=== PATIENT | female | born 1995 | race Caucasian/White ===

== ENCOUNTER 2019-03-05 08:10 | Day surgery (SDC) | payer MEDICAID ==
[2019-03-03 14:31] LABS: BASOPHILS 0.5 % (0-2); EOSINOPHILS 2.7 % (0-7); HEMATOCRIT 36.8 % (36.0-48.0); HEMOGLOBIN 12.7 g/dL (12-16); IMMATURE GRANULOCYTES 0.2 % (0-5); LYMPHOCYTES 33.3 % (15-50); MCH 29.1 pg (26.0-34.0); MCHC 34.5 g/dL (31.0-37.0); MCV 84.2 fL (80.0-100.0); MEAN PLATELET VOLUME 8.7 fL (7.4-10.4); MONOCYTES 10.1 % (2-11); NEUTROPHILS 53.2 % (40-80); RBC 4.37 10x6/uL (4.00-5.40); RDW 12.6 % (11.5-14.5); WBC 4.4 10x3/uL (4.8-10.8)
[2019-03-03 14:40] LABS: PLATELET COUNT 153 10x3/uL (130-400)
[~2019-03-05 08:10] MED LIST: ACETAMINOPHEN500 M1 PO; CLEOCIN HCL150 MG PO; LISINOPRIL10 MG PO; METHYLDOPA500 MG PO; PRENATAL COMPLE1 TAB PO; SYNTHROID100 MCG PO; ZIAC 10-6.25 MG1 TAB PO; ZOFRAN4 MG PO
[2019-03-05 08:40] LABS: HCG URINE NEGATIVE (NEGATIVE)
[2019-03-05] MEDS ORDERED: BREO ELLIPTA 11 EACH INH (08:42)
[2019-03-05] MEDS ORDERED: ELAVIL10 MG PO (08:43)
[2019-03-05 08:44] VITALS: BP 145/99; BMI 32.6
--- NOTE | 2019-03-05 11:55 | NUR ---
REC'D FROM RR. DROWSY. RESPONDS TO VERBAL STIMULI. [place] BROUGHT TO PATIENT.
--- NOTE | 2019-03-05 12:55 | NUR ---
AMBULATED TO BATHROOM AND VOIDED WITHOUT DIFFICULTY. SIGNIFICANT OTHER ASKING ABOUT SURGICAL PROCEDURE. EXPLAINED THAT DR HARGROVE CAME BY TO SPEAK WITH FAMILY AFTER SURGERY BUT NOBODY WAS IN THE ROOM. RELATED WOULD TRY AND REACH DR HARGROVE.
--- NOTE | 2019-03-05 13:20 | NUR ---
PAGED DR HARGROVE.
--- NOTE | 2019-03-05 13:23 | NUR ---
DR HARGROVE SPEAKING WITH PATIENT'S SIGNIFICANT OTHER VIA TELEPHONE.
--- NOTE | 2019-03-05 14:00 | NUR ---
IV DC'D WITH CATHETER INTACT. WRITTEN AND VERBAL DC INST. GIVEN TO PT ALONG WITH RX. VERBALIZED UNDERSTANDING,
--- NOTE | 2019-03-05 14:10 | NUR ---
DC'D HOME WITH FAMILY VIA PRIVATE VEHICLE. TAKEN TO VEHICLE VIA WC. STABLE AT TIME OF DC.
--- NOTE | 2019-03-23 13:55 | OP ---
PATIENT NAME: KAYLI LOZA MEDICAL RECORD: [id number] :93 LOCATION:D.OPS ADMISSION DATE: SURGEON: KATERIN CORRALES MD DATE OF OPERATION: 03/05/2019 PREOPERATIVE DIAGNOSES: 1. Menorrhagia. 2. Dysmenorrhea. POSTOPERATIVE DIAGNOSES: 1. Retroverted uterus. 2. Cavity too large to perform endometrial ablation. PROCEDURES: Hysteroscopy and D&C. SURGEON: Katerin Corrales ANESTHESIA: General by LMA. INTRAVENOUS FLUIDS: Per anesthesia record. HYSTEROSCOPIC FLUID LOSS: Approximately 50 cc. SPECIMENS: Endometrial curettings. FINDINGS: Retroverted uterus with sounding to approximately 11 cm when uterine cavity straightened. Grossly normal external genitalia and cervix. SPECIMENS: Included endometrial curettings. BLOOD LOSS: Minimal. PROCEDURE IN DETAIL: The patient was taken to the operating room, where general anesthesia was achieved without any difficulty. The patient was then prepped and draped in normal sterile fashion in the dorsal lithotomy position in the [facility]. Following prep and drape, the bladder was drained of approximately 100 cc of clear yellow urine. At this point, a Graves speculum was placed into the vagina and the cervix was grasped on its anterior lip with a single-tooth tenaculum. The cervix was dilated to approximately 8 mm, at which point a hysteroscope was placed into the cervix and the uterus was found to be retroverted. Gentle tension was placed on the cervix to straighten out the uterine cavity and the uterine cavity sounded to approximately 11 cm. It was felt this was too large to use the NovaSure endometrial ablation device. Curettage was performed, returning copious amounts of proliferative-appearing tissue. Minimal bleeding was noted from the cervical os at that time. The tenaculum was then removed. The patient tolerated the procedure well. She was transferred to postanesthesia recovery stable without incident. TRANSINT:[id number] Voice Confirmation ID: [id number] DOCUMENT ID: [id number] OPERATIVE REPORT [id number] KAYLI LOZA BEENA, KATERIN Olievr MD at 1355 CC: [id number] DICTATION DATE: 03/18/19 1124 [employer] MACHINE OPERATOR: 03/18/19 1203 [facility] 03/05/19 [facility] [address] [facility] [place] [address]
== END 2019-03-05 14:10 | disposition home or self-care (01) ==
LOC: D.OPS 08:10
PROVIDERS: ATTEND Obstetrics & Gynecology
DX: N94.6 Dysmenorrhea, unspecified (principal); E28.2 Polycystic ovarian syndrome

== ENCOUNTER 2019-04-12 10:27 | Inpatient (IN) | payer MEDICAID ==
[~2019-04-12 10:27] MED LIST changes: +BREO ELLIPTA 11 EACH INH; +ELAVIL10 MG PO
[2019-04-14] MEDS ORDERED: LEXAPRO5 MG PO (14:28)
[2019-04-14 14:57] LABS: BASOPHILS 0.3 % (0-2); HEMATOCRIT 37.7 % (36.0-48.0); HEMOGLOBIN 12.9 g/dL (12-16); IMMATURE GRANULOCYTES 0.3 % (0-5); LYMPHOCYTES 24.4 % (15-50); MCH 28.4 pg (26.0-34.0); MCHC 34.2 g/dL (31.0-37.0); MEAN PLATELET VOLUME 8.8 fL (7.4-10.4); MONOCYTES 6.6 % (2-11); NEUTROPHILS 65.4 % (40-80); PLATELET COUNT 156 10x3/uL (130-400); RBC 4.54 10x6/uL (4.00-5.40); RDW 12.5 % (11.5-14.5); WBC 7.5 10x3/uL (4.8-10.8)
[2019-04-14 15:11] LABS: CALC OSMOLALITY 279 mosm/kg (275-300); CARBON DIOXIDE 28.3 mmol/L (21.0-32.0); CHLORIDE - SERUM 104 mmol/L (98-107); CREATININE - SERUM 0.9 mg/dL (0.6-1.3); GLUCOSE 119 mg/dL (74-106); POTASSIUM - SERUM 3.6 mmol/L (3.5-5.1); SODIUM 140 mmol/L (136-145); UREA NITROGEN 12 mg/dL (7-18); eGFR NON AFRICAN AMERICAN 80 mL/min (90-120)
[2019-04-16] VITALS (14 sets, daily range): BP systolic 113–140; BP diastolic 60–87; BMI 34.3; BMI 33.7
[2019-04-16 07:08] LABS: HCG URINE NEGATIVE (NEGATIVE)
--- NOTE | 2019-04-16 10:50 | NUR ---
RECEIVED PT FROM VIA BED TO ROOM 1278. BED LOCKED AND PLACED IN LOW POSITION. VS NOTED. O2 INCREASED TO 2 LITERS PER N/C. HRRR WITHOUT AUDIBLE MURMUR. BBS CLEAR. BS ABSENT LOWER QUADS. ABDOMINAL INCISION WITH DERMABOND. NO REDNESS, SWELLING OR DRAINAGE NOTED. PERIPAD TO INCISION. ICE PACK TO INCISION FOR COMFORT. NO VAGINAL DISCHARGE NOTED. NEG HOMANS' SIGN. PPP. MILD NON-PITTING EDEMA NOTED TO BLE. SCDS ON BLE. PUMP ON. MCKEON TO GRAVITY DRAINING CLEAR, LIGHT GREEN URINE. PIV SITE CLEAR TO RIGHT HAND. LR INFUSING AT 125 ML/HR. DILAUDID UTILITY HAND STARTED ORDERED. PT INSTRUCTED ON UTILITY HAND BUTTON AND DILAUDID MEDICATION. WILL NEED REINFORCEMENT PT IS DROWSY AT THIS TIME. SR UP X 2. CALL LIGHT IN REACH.
--- NOTE | 2019-04-16 12:02 | NUR ---
PT LYING SUPINE IN BED. SEMI-DEL ROSARIO'S POSITION. EYES CLOSED. RESP NON-LABORED. PT NOT DISTURBED TO ALLOW FOR REST.
--- NOTE | 2019-04-16 13:00 | NUR ---
PT LYING IN SEMIFOWLER'S POSITION. PT MORE AWAKE. VSS. ABDOMINAL INCISION WITHOUT REDNESS, SWELLING OR DRAINAGE NOTED. PT REQUESTS AND RECEIVES POPSICLE. DENIES NAUSEA.
--- NOTE | 2019-04-16 14:10 | NUR ---
TORADOL 30 MG GIVEN SIVP OVER 2 MINUTES FOR C/O INCISIONAL BURNING OF "8" ON 0-10 PAIN SCALE. INSTRUCTED ON MED. VERBALIZES UNDERSTANDING.
[2019-04-16 14:59] LABS: BASOPHILS 0.1 % (0-2); EOSINOPHILS 0.1 % (0-7); HEMATOCRIT 38.2 % (36.0-48.0); HEMOGLOBIN 13.1 g/dL (12-16); IMMATURE GRANULOCYTES 0.4 % (0-5); LYMPHOCYTES 4.1 % (15-50); MCH 28.5 pg (26.0-34.0); MCHC 34.3 g/dL (31.0-37.0); MCV 83.2 fL (80.0-100.0); MONOCYTES 1.8 % (2-11); NEUTROPHILS 93.5 % (40-80); PLATELET COUNT 140 10x3/uL (130-400); RBC 4.59 10x6/uL (4.00-5.40); RDW 12.4 % (11.5-14.5)
[2019-04-16 15:30] LABS: CALC OSMOLALITY 273 mosm/kg (275-300); CALCIUM 8.7 mg/dL (8.5-10.1); CARBON DIOXIDE 25.5 mmol/L (21.0-32.0); CHLORIDE - SERUM 103 mmol/L (98-107); CREATININE - SERUM 0.6 mg/dL (0.6-1.3); GLUCOSE 128 mg/dL (74-106); POTASSIUM - SERUM 4.3 mmol/L (3.5-5.1); SODIUM 137 mmol/L (136-145); UREA NITROGEN 7 mg/dL (7-18); eGFR NON AFRICAN AMERICAN > 90 mL/min (90-120)
--- NOTE | 2019-04-16 15:32 | NUR ---
I/O COMPLETED. PT DENIES NEEDS OR C/O.
--- NOTE | 2019-04-16 15:54 | NUR ---
TALKING ON TELEPHONE- DENIES NEEDS.
--- NOTE | 2019-04-16 17:24 | NUR ---
PT LYING SUPINE IN BED. WAKES UPON ENTERING ROOM. DENIES C/O OR NEEDS. TOLERATING CLEAR LIQUIDS.
--- NOTE | 2019-04-16 17:55 | NUR ---
PT INSTRUCTED ON USE OF INCENTIVE SPIROMETER. DEMONSTRATES UNDERSTANDING. PULLS 1800.
--- NOTE | 2019-04-16 18:44 | NUR ---
PT LYING IN SEMI-DEL ROSARIO'S POSITION. EYES CLOSED. RESP NON-LABORED. PT NOT DISTURBED TO ALLOW FOR REST.
--- NOTE | 2019-04-16 19:35 | NUR ---
DR PARR NOTIFIED OF PT C/O THROAT PAIN. ORDER RECEIVED.
--- NOTE | 2019-04-16 20:01 | NUR ---
SHIFT ASSESSMENT COMPLETED PER FLOWSHEET. VSS. O2 DECREASED FROM 2L/MIN TO 1.5L/MIN. C/O PAIN 6/10, INTERMITTENT ABD PAIN, DULL AND SHARP. TORADOL GIVEN PER ORDER AND PT REQUEST. 700 MLS LIGHT BLUE/GREEN URINE EMPTIED FROM MCKEON, MCKEON DRAINING TO BEDSIDE DRAINAGE. REPORTS THAT SHE IS PASSING FLATUS. BOWEL SOUNDS ACTIVE X4 QUADRANTS. LOWER TRANSVERSE ABD INCISION, WELL APPROXIMATED WITH GLUE INTACT, NO DRAINAGE NOTED. PERIPAD PLACE OVER INCISION BETWEEN ABD FOLD. INSTRUCTED ON S/S OF INFECTION AND INCISIONAL CARE, VERBALIZED UNDERSTANDING. SCD'S ON BLE. JELLO, SPRITE, AND ICE PACK PROVIDED PER PT REQUEST. PLAN OF CARE DISCUSSED WITH PT, VERBALIZES UNDERSTANDING AND DENIES QUESTIONS. BED IN LOW POSITION WITH UPPER SIDE RAILS RAISED X2. CALL LIGHT AND PHONE WITHIN REACH.
--- NOTE | 2019-04-16 20:30 | NUR ---
PAIN REASSESSMENT COMPLETED, -02/17, STATES THAT TORADOL "HELPED A WHOLE LOT." BLANKET PROVIDED PER REQUEST. DENIES ADDITIONAL NEEDS. BED IN LOW POSITION WITH UPPER SIDE RAILS RAISED X2. CALL LIGHT AND PHONE WITHIN REACH. SCD'S ON BLE. WILL CONTINUE TO MONITOR AND ASSIST PRN.
--- NOTE | 2019-04-16 20:46 | NUR ---
C/O ITCHING ALL OVER. DR. PARR NOTIFIED. ORDERS REC'D.
--- NOTE | 2019-04-16 21:28 | NUR ---
UPDATED ON PLAN OF CARE AND NEW ORDERS FOR BENADRYL. 25 MG IVP BENADRYL GIVEN PER ORDER. PT EDUCATED ON BENADRYL, VERBALIZES UNDERSTANDING. PULMONOLOGY TECHNICIAN VIAL NEAR END AND CHANGED, VERIFIED WITH Efren SHULTZ RN. REPOSITIONED TO LEFT SIDE WITH MINIMAL ASSIST. COUGH, DEEP BREATHING, AND INCENTIVE SPIROMETER DONE WITH GOOD EFFORT. JELLO AND EXTRA PILLOW PROVIDED PER PT REQUEST. DENIES ADDITIONAL NEEDS. BED IN LOW POSIITION WITH UPPER SIDE RAILS RAISED X2. CALL LIGHT AND PHONE WITHIN REACH. WILL CONTINUE TO MONITOR AND ASSIST PRN.
--- NOTE | 2019-04-16 22:18 | NUR ---
RESTING QUIETLY WITH EYES CLOSED, RESPIRATIONS REGULAR AND UNLABORED, NO S/S OF DISTRESS NOTED. PT DOES NOT OPEN EYES TO DOOR OPENING AND RN BEING AT BEDSIDE, PHONE OFF HOOK AND REPLACED. SCD'S REMAIN ON BLE. WILL CONTINUE TO MONITOR AND ASSIST PRN. MCKEON CONTINUES TO DRAIN TO BEDSIDE DRAINAGE.
[2019-04-17] VITALS (7 sets, daily range): BP systolic 104–152; BP diastolic 55–78
--- NOTE | 2019-04-17 00:08 | NUR ---
VSS. PAIN 2-3, STATES THAT WINDOW DRESSER IS CONTROLLING PAIN WELL "AND THE TORADOL REALLY WORKS WELL." 600 MLS LIGHT BLUE/GREEN COLORED URINE EMPTIED FROM MCKEON. GOWN AND CHUX CHANGED. INCISION REMAINS WELL APPROXIMATED WITH GLUE INTACT, NO DRAINAGE NOTED. CLEAN PERIPAD PLACED ON INCISION BETWEEN ABD FOLD. PIV DRSG CHANGED. REPOSITIONED TO RIGHT SIDE WITH PILLOW PLACED BEHIND BACK FOR COMFORT AND SUPPORT, MINIMAL ASSIST NEEDED WITH REPOSITIONING. COUGHING, DEEP BREATHING, AND INCENTIVE SPIROMETER DONE WITH GOOD EFFORT. SCD'S REMAIN ON BLE. CHICKEN BROTH, JELLO, AND WATER PROVIDED PER PT REQUEST. DENIES ADDITIONAL NEEDS. BED IN LOW POSITION WITH UPPER SIDE RIALS RAISED X2. CALL LIGHT AND PHONE WITHIN REACH. WILL CONT TO MONITOR AND ASSIST PRN.
--- NOTE | 2019-04-17 02:26 | NUR ---
NEW BAG LR HUNG TO CONTINUE TO INFUSE AT 125 MLS/HR VIA PUMP PER ORDER. REPOSITIONED FROM RT SIDE TO BACK WITH MINIMAL ASSIST. COUGH, DEEP BREATHING, AND INCENTIVE SPIROMETER USED WITH GOOD EFFORT. C/O PAIN 05/19 FOLLOWING ACTIVITY, REQUESTS TORADOL, GIVEN PER REQUEST AND ORDER. LAY UP OPERATOR BUTTON ALSO USE AT THIS TIME. SCD'S REMAIN ON BLE. BED IN LOW POSITION WITH UPPER SIDE RIALS RAISED X2. CALL LIGHT AND PHONE WITHIN REACH. WILL CONTINUE TO MONITOR AND ASSIST PRN.
--- NOTE | 2019-04-17 03:04 | NUR ---
RESTING QUIETLY WITH EYES CLOSED, RESPIRATIONS REGULAR AND UNLABORED, NO S/S OF DISTRESS NOTED. WILL CONTINUE TO MONITOR AND ASSIST PRN.
--- NOTE | 2019-04-17 04:44 | NUR ---
VSS. 450 MLS BLUE/GREEN URINE EMPTIED FROM MCKEON. INCISION REMAINS WELL APPROXIMATED WITH GLUE INTACT, NO DRAINAGE NOTED. NEW PERIPAD PLACED OVER INCISION BETWEEN ABD FOLD. COUGH, DEEP BREATHING, AND INCENTIVE SPIROMETER DONE WITH GOOD EFFORT. REPOSITIONED WITH MINIMAL ASSIST TO LEFT SIDE. NEW ICE PACK PROVIDED. SCD'S REMAIN ON BLE. JELLO, ICE WATER, AND CHICKEN BROTH PROVIDED PER PT REQUEST. C/O OF ITCHING, 25 MG IVP BENADRYL GIVEN PER REQUEST AND ORDER. SOCKS AND WARM BLANKET ALSO PROVIDED PER REQUEST. DENIES ADDITIONAL NEEDS. BED IN LOW POSITION WITH UPPER SIDE RAILS RAISED X2. CALL LIGHT AND PHONE WITHIN REACH. WILL CONTINUE TO MONITOR AND ASSIST PRN.
[2019-04-17 06:14] LABS: BASOPHILS 0.1 % (0-2); EOSINOPHILS 0.3 % (0-7); HEMOGLOBIN 11.3 g/dL (12-16); IMMATURE GRANULOCYTES 0.2 % (0-5); LYMPHOCYTES 15.5 % (15-50); MCHC 33.2 g/dL (31.0-37.0); MCV 84.2 fL (80.0-100.0); MEAN PLATELET VOLUME 9.8 fL (7.4-10.4); MONOCYTES 10.9 % (2-11); PLATELET COUNT 131 10x3/uL (130-400); RBC 4.04 10x6/uL (4.00-5.40); RDW 12.5 % (11.5-14.5); WBC 10.3 10x3/uL (4.8-10.8)
[2019-04-17 06:25] LABS: CALC OSMOLALITY 279 mosm/kg (275-300); CALCIUM 8.3 mg/dL (8.5-10.1); CARBON DIOXIDE 27.3 mmol/L (21.0-32.0); CHLORIDE - SERUM 107 mmol/L (98-107); CREATININE - SERUM 0.7 mg/dL (0.6-1.3); GLUCOSE 101 mg/dL (74-106); POTASSIUM - SERUM 4.1 mmol/L (3.5-5.1); SODIUM 141 mmol/L (136-145); eGFR NON AFRICAN AMERICAN > 90 mL/min (90-120)
[2019-04-17 06:26] LABS: UREA NITROGEN 9 mg/dL (7-18)
--- NOTE | 2019-04-17 06:41 | NUR ---
REPOSITIONED TO BACK FROM LEFT SIDE. COUGH, DEEP BREATHING AND INCENTIVE SPIROMETER DONE WITH GOOD EFFORT. SCD'S ON BLE. PAIN 2-3/10 AT REST AND INCREASED TO 6-7/10 WITH ACTIVITY. WET END SUPERVISOR BUTTON USED. JELLO PROVIDED PER PT REQUEST. DENIES ADDITIONAL NEEDS. REPORTS RELIEF IN PAIN WITH WET END SUPERVISOR BUTTON USE. SCD'S REMAIN ON BLE. BED IN LOW POSITION WITH UPPER SIDE RAILS RAISED X2. CALL LIGHT AND PHONE WITHIN REACH. WILL CONTINUE TO MONITOR AND ASSIST PRN.
--- NOTE | 2019-04-17 07:32 | NUR ---
ASSUME CARE OF THIS PATIENT. CURRENTL SLEEPING TILTED TO RIGHT SIDE. RESPIRATIONS EVEN. SIDE RAILS UP X 2, CALL LIGHT IN REACH. WILL COMPLETE SHIFT ASSESSMENT WHEN AWAKE. ANTICIPATE NORMALIZATION THIS AM. 1 DAY S/P DARRIUS BSO. PATRICK MCKEON DATA SECURITY COORDINATOR, LR 125 ML/HR RIGHT HAND, SCD'S BILATERALLY. SMOKER.
--- NOTE | 2019-04-17 07:43 | NUR ---
CONCUR WITH CURRENT CARE PLAN ORDER.
--- NOTE | 2019-04-17 07:54 | NUR ---
CONTINUES SLEEPING, RESPIRATIONS EVEN.
--- NOTE | 2019-04-17 08:06 | NUR ---
TO ROOM FOR ASSESSMENT. AWAKE TALKING ON PHONE. SHIFT ASSESSMENT COMPLETED. DEEP BREATHING AND COUGHING COMPLETED. POSITIONED TO SEMI-FOWLERS POSITION PER SELF FOR BREAKFAST. DISCUSSED PROBABLE POC AFTER MD MAKES ROUNDS TO INCLUDE DC MCKEON, IV FLUIDS, AMBULATION, SHOWER AND PAIN MANAGEMENT. ICE PACK PRESENT OVER INCISION. SAYS HER PAIN IS 6/10, ENCOURAGED CONTINUED USE OF CADDY PACKER. HER PAIN GOAL IS 4/10. C/O GENERAL SKIN ITCHING, REQUESTED LOTION. NOTICE MAULIK SKIN UPPER SHOULDERS WITH PEELING SKIN- HAS BEEN IN SUN. LOTION AND WATER GIVEN. DISCUSSED NICODERM PATCH. DESIRES TO TRY. NO VAGINAL BLEEDING NOTED. DAY-PAD OVER INCISION NOTED. SIDERAILS UP X 2. CALL LIGHT IN REACH. CADDY PACKER CONTROLLER IN REACH.
--- NOTE | 2019-04-17 09:03 | NUR ---
SITTING UP IN BED TALKING ON PHONE. 5/10 ON PAIN SCALE, SAYS SHE JUST PUSHED HER WHEAT GROWER CONTROLLER. SAYS HER PAIN WILL SOMETIMES GO DOWN TO A 4/10 AFTER PUSHING AND "SOMETIMES NOT". NO ORDERS FOR NICODERM PATCH, WILL ASK MD WHEN HE COMES IN. HAS LOTION BUT HAS NOT USED. NOT TIME FOR BENADRYL. WILL GIVE TORADOL TO SUPPLEMENT DILAUDID.
--- NOTE | 2019-04-17 09:12 | NUR ---
TORADOL 30 MG GIVEN IVP FOR RELIEF OF 6/10 INCISIONAL DULL ACHING PAIN, WORSE WITH MOVEMENT. DR PARR VISITED. PLANS DC MCKEON, IV FLUIDS, HIDE TANNER, START REGULAR DIET, AMBULATE, SHOWER TODAY. SIDERAILS UP X 2, CALL LIGHT IN REACH. TO CALL IF ANY REQUESTS.
--- NOTE | 2019-04-17 09:41 | NUR ---
DR PARR VISITED PATIENT. NEW ORDERS RECEIVED.
--- NOTE | 2019-04-17 10:15 | NUR ---
MCKEON DC'D, IV FLUIDS DC'D AND SALINE LOCK FLUSHED WITH 10 ML NS. INCENTIVE SPIROMETER USED. NORCO 10 MG GIVEN PO FOR RELIEF OF 5/10 INCISIONAL DULL ACHING. DISCUSSED PLANS TO VOID WITHIN NEXT 4-6 HOURS. WILL GET OOB WHEN PT READY. PLAN REGULAR DIET FOR LUNCH. SIDE RAILS UP X 2, CALL LIGHT IN REACH.
--- NOTE | 2019-04-17 10:20 | NUR ---
DESIRES TO TRY TO VOID. SAT UP ON BEDSIDE WITHOUT DIFF, C/O SLIGHT DIZZINESS. DISCUSSED IMPORTANCE OF LETTING BP STABLIZE WHEN MOVING. STOOD UP WITHOUT DIFF. AMBULATED TO BR, UNABLE TO VOID, EXPLAINED TO PT THE FEELING MIGHT BE RELATED TO CATH JUST BEING DC'D. RETURNED TO BED. DESIRES TO SIT ON BEDSIDE. CALL LIGHT IN REACH.
--- NOTE | 2019-04-17 11:08 | NUR ---
TALKING ON PHONE. DENIES PAIN AT THIS TIME. NO REQUESTS. SIDERAILS UP X 2, CALL LIGHT IN REACH.
--- NOTE | 2019-04-17 12:08 | NUR ---
UP TO BATHROOM WITH ASSISTANCE FROM RN STUDENTS. PT AGREED EARLIER TO ALLOW FIREMAN HELPER TO WORK WITH THIS RN. VOIDED 200 ML LIGHT GREEN URINE. ATE SANDWICH TRAY EARLIER WITHOUT DIFFICULTY. RETURNED TO BED. ASKED FOR JELLO WHICH WAS GIVEN. SIDERAILS UP X 2, CALL LIGHT IN REACH. PULSE OX F/U 97% AFTER USING INCENTIVE SPIROMETER AND INSTRUCTING FIREMAN HELPER ON PROPER APPLICATION OF PULSE OX.
--- NOTE | 2019-04-17 12:36 | NUR ---
SITTING UP ON EDGE OF BED EATING LUNCH. C/O 6/10 SHARP LEFT SIDE INCISION PAIN. NOT TIME FOR PAIN MEDICATION. SMALL ICE PACK GIVEN TO PLACE ON LEFT SIDE OF INCISION AND ENSURED DAY-PAD OVER INCISION IN PLACE. STATES "I'M GOING TO FINISH EATING THEN LAY DAY AND SEE IF IT HELPS". WILL CONTINUE TO MONITOR INTERVENTIONS FOR IMPROVEMENT OF PAIN.
--- NOTE | 2019-04-17 13:20 | NUR ---
LAYING DOWN IN BED, SAYS HER PAIN IS BETTER NOW 02/17. FRESH WATER GIVEN, LIGHTS TURNED ON LOW, SIDERAILS UP X 2, CALL LIGHT IN REACH.
--- NOTE | 2019-04-17 13:52 | NUR ---
UP TO BATHROOM TO VOID. VOIDED 500 ML LIGHT GREEN URINE. BRUSHED TEETH WHILE UP. FAMILY ARRIVED TO VISIT. RETURNED TO BED WITHOUT DIFFICULTY. PLAN SHOWER LATER THIS AFTERNOON. TO CALL IF ANYTHING IS NEEDED.
--- NOTE | 2019-04-17 14:19 | NUR ---
NORCO 10 MG GIVEN PO FOR RELIEF OF 6/10 LEFT SIDE INCISIONAL BURNING. SITTING UP IN BED EATING ICE CREAM TALKING TO VISITORS. NO ADDITIONAL REQUEST. CALL LIGHT IN REACH.
--- NOTE | 2019-04-17 15:58 | NUR ---
COMPLETED SHOWER, AMBULATED IN [place] THREE TIMES AROUND L&D. TOLERATED WELL. SAYS SHE DOESN'T FEEL ANY PAIN NOW. "I'M SURPRISED HOW GOOD I FEEL BEING OUT OF THE BED". RETURNED TO ROOM. NO REQUESTS. COMPLETE LINEN CHANGE WAS DONE AND ROOM STRAIGHTENED. SIDERAILS UP X 2, CALL LIGHT IN REACH. NOTICED PRODUCTIVE COUGH OF THICK ZELAYA COLORED SPUTUM. ENCOURAGED CONTINUED USE OF INCENTIVE SPIROMETER, DEEP BREATHING AND COUGHING. DISCUSSED CHANGED THAT OCCUR AFTER NOT SMOKING A COUPLE OF DAYS AND ENCOURAGED TO CONSIDER QUITING SMOKING.
--- NOTE | 2019-04-17 16:37 | NUR ---
SITTING UP IN BED GETTING READY TO EAT. DESIRES SOMETHING DIFFERENT FOR DINNER, EXT GIVEN FOR PT TO CALL TO ORDER WHAT SHE WOULD LIKE. NO ADDITIONAL REQUESTS. INCISION DRY AND INTACT, NO ERRYTHEMA OR DRAINAGE, CLEAN DAY-PAD PLACED OVER SITE.
--- NOTE | 2019-04-17 17:08 | NUR ---
SITTING UP IN BED TALKING ON PHONE. WAITING ON ALTERNATE DINNER ORDER. 02/17 INCISIONAL BURNING, NO REQUESTS. FRESH WATER GIVEN. CALL LIGHT IN REACH. UP AD SITA TO BATHROOM.
--- NOTE | 2019-04-17 18:15 | NUR ---
SITTING UP IN BED. RECIEVED FOOD FROM DIETARY AND CURRENTLY EATING. NO REQUESTS. SIDERAILS UP X 2, CALL LIGHT IN REACH. 02/17 INCISIONAL BURNING.
--- NOTE | 2019-04-17 19:27 | NUR ---
PT C/O PAIN TO INCISION, PRN HYDROCODONE ADMINISTERED WITH SIPS WATER. NAD NOTED. WILL MONITOR.
--- NOTE | 2019-04-17 19:45 | NUR ---
SHIFT ASSESSMENT COMPLETED, COLOR PINK, SKIN WARM AND DRY, RESP EVEN AND UNLABORED, LUNGS CTAB, HEART RRR, ABD SOFT NO ABD DISTENSION NOTED, INCISION CDI WITH DERMABOND, NO REDNESS, EDEMA, OR DRAINAGE NOTED AT SITE, PERIPAD IN PLACE OVER INCISION TO PREVENT IRRITATION, REPORTS SOME FLATUS, NO BM YET, NO BLEEDING, VOIDS WITHOUT DIFFICULTY, CALDERÓN FREELY IN BED, NEGATIVE LENKA'S SIGN B LE, PEDAL PULSES STRONG/=/+2 B. CAP REFILL LESS THAN 2 SECS TO ALL EXTREMITIES, CALL LIGHT IN EASY REACH, DISCUSSED PLAN OF CARE STATES UNDERSTANDING, TCDB, TO AMBULATE IN HALLS THIS PM. WILL MONITOR.
--- NOTE | 2019-04-17 20:35 | NUR ---
RECHECK OF BP NOW 134/63. PT LYING SUPINE WITH HOB ELEVATED 30 DEGREES, DENIES OTHER NEEDS AT THIS TIME. WILL MONITOR.
--- NOTE | 2019-04-17 21:20 | NUR ---
PHONED DR PARR FOR PT CONTINUED C/O PAIN RATED 9/10 ON NUMERIC PAIN SCALE-INCISIONAL AND BURNING, SHARP PAIN. NEW ORDERS RECEIVED AND RELAYED TO PT. PT STATES UNDERSTANDING. WILL ADMINISTER UPON AVAILABILITY OF RN TO OVERRIDE PYXIS.
--- NOTE | 2019-04-17 21:24 | NUR ---
ADMINISTERED TORADOL PER PT REQUEST FOR C/O PAIN 07/20. WILL MONITOR.
--- NOTE | 2019-04-17 21:30 | NUR ---
PT AMBULATORY IN HALLS WITH SIGNIFICANT OTHER AT SIDE FOR SUPPORT. NAD NOTED. CONTINUE TO MONITOR.
--- NOTE | 2019-04-17 21:40 | NUR ---
ADMINISTERED PRN PERCOCET FOR CONTINUED C/O PAIN 9/10 ON NUMERIC PAIN SCALE. PT SIGNIFICANT OTHER AT BS WITH PT, CUP OF WATER PROVIDED PER REQUEST. SITTING UP IN BED, WATCHING TV. CALL LIGHT IN EASY REACH OF PT.
--- NOTE | 2019-04-17 22:29 | NUR ---
HS SNACK TRAY PROVIDED UPON REQUEST. NO OTHER NEEDS VOICED AT THIS TIME, CONTINUE TO MONITOR.
--- NOTE | 2019-04-17 22:44 | NUR ---
ADDITIONAL LINENS PROVIDED FOR SIGNIFICANT OTHER IN ROOM PER REQUEST. NO OTHER NEEDS VOICED AT THIS TIME. CALL LIGHT IN EASY REACH OF PT, CONTINUE TO MONITOR.
--- NOTE | 2019-04-17 23:36 | NUR ---
PT OOB TO NURSES' DESK TO TALK, AMBULATORY IN HALLS ALSO, DENIES NEEDS/CONCERNS, NAD NOTED. CONTINUE TO MONITOR.
--- NOTE | 2019-04-18 01:17 | NUR ---
ROUNDS COMPLETED, LYING IN BED SUPINE HOB ELEVATED 30 DEGREES, SIDE RAILS UP X2, BED IN LOW POSITION, RESP EVEN AND UNLABORED, CALL LIGHT IN EASY REACH, NAD NOTED. CONTINUE TO MONITOR.
--- NOTE | 2019-04-18 03:21 | NUR ---
ROUNDS COMPLETED, VSS, AFEBRILE, RESTING IN RIGHT LATERAL POSITION, HOB ELEVATED 20 DEGREES, PRN MED GIVEN WITH SIPS WATER PER REQUEST FOR C/O PAIN RATED 6/10, SIDE RAILS UP X2, BED IN LOW POSITION, BED BRAKES LOCKED.
[2019-04-18 03:25] VITALS: BP 114/76
--- NOTE | 2019-04-18 04:05 | NUR ---
PAIN REASSESSMENT. PT RESTING WITH EYES CLOSED, NO PHYSICAL S/SX PAIN OBSERVED USING FACIAL SCALE, SIDE RAILS UP X2, BED IN LOW POSITION. CONTINUE TO MONITOR.
--- NOTE | 2019-04-18 05:15 | NUR ---
ROUNDS COMPLETED. NAD NOTED, PT LYING IN RIGHT LYING POSITION, RESP EVEN AND UNLABORED, CONTINUE TO MONITOR.
--- NOTE | 2019-04-18 07:03 | NUR ---
REPORT GIVEN TO ONCOMING SHIFT.
--- NOTE | 2019-04-18 07:04 | NUR ---
ASSUME CARE OF THIS PATIENT. CURRENTLY SLEEPING ON RIGHT SIDE, RESPIRATIONS EVEN. VISITOR ALSO SLEEPING IN BED WITH PT. SIDE RAILS UP X 2, CALL LIGHT IN REACH. ANTICIPATE DC HOME TODAY.
--- NOTE | 2019-04-18 08:34 | NUR ---
JUST WOKE UP AND TO BATHROOM TO VOID. REQUEST PAIN MEDICATION FOR 9/10 LEFT INCISIONAL BURNING. PERCOCET 10 MG GIVEN PO. NO ACUTE DISTRESS NOTED, SMILING, TALKATIVE, VISITOR IN ROOM, BREAKFAST TRAY AT BEDSIDE. NO ADDITIONAL REQUESTS. WILL COMPLETE SHIFT ASSESSMENT AFTER BREAKFAST.
[2019-04-18 09:10] VITALS: BP 131/85
--- NOTE | 2019-04-18 09:10 | NUR ---
AWAKE SITTING UP IN BED. FINISHED BREAKFAST. VOIDING WITHOUT DIFF. HAS NOT HAD BM BUT SAYS SHE DOES PASS SOME GAS. NO ACUTE DISTRESS NOTED, SMILING, TALKING. VS OBTAINED. DESIRES NICODERM PATCHED PRESCRIPTION, DECLINES SMOKING CESSATION REFERRAL PROGRAM, WILL GIVE WRITTEN DC INSTRUCTIONS TO SUPPORT SMOKING CESSATION. ENCOURAGED TO REST NOW AFTER RECEIVING PAIN MEDICIATION AND SCHEDULED TORADOL. PLANS SHOWER IN APPROX ONE HOUR. SIDERAILS UP X 2, CALL LIGHT IN REACH.
--- NOTE | 2019-04-18 10:04 | NUR ---
SITTING UP IN BED. VISITOR JUST LEFT. PAIN IN INCISION IMPROVED, NOW 3-4/10 BURNING. ITEMS PLACED IN ROOM FOR SHOWER WHEN PT READY. NO ADDITIONAL REQUESTS. TO CALL IF ANYTHING IS NEEDED.
--- NOTE | 2019-04-18 10:41 | NUR ---
DR PARR VISITED PATIENT. REQUESTED ICE WATER AND ICE CREAM. NO OTHER REQUESTS. TOOK SHOWER AND LINENS WERE CHANGED BY RN STUDENT. TO CALL IF ANYTHING ELSE IS NEEDED.
--- NOTE | 2019-04-18 11:17 | NUR ---
LAYING ON LEFT SIDE. DENIES NEEDING ANYTHING 5/10 INCISIONAL BURNING. LIGHTS TURNED OFF PER PT REQUEST. WAITING ON DR HARGROVE VISIT. STATES "I'M IN NO HURRY". SIDERAILS UP X 2, CALL LIGHT IN REACH.
--- NOTE | 2019-04-18 12:29 | NUR ---
SLEEPING ON SIDE. RESPIRATIONS EVEN.
--- NOTE | 2019-04-18 13:04 | NUR ---
DR PARR CALLED AND SAID DR HARGROVE WILL NOT BE IN. ORDERS RECEIVED TO IA HOME. PER RECORDS PT HAS F/U APPOINTMENT SCHEDULED 04/29/19 AT 1015.
--- NOTE | 2019-04-18 13:13 | NUR ---
AWAKE. ATE 90% OF LUNCH. ASKED IF IT WAS TIME FOR PAIN MEDICATION. C/O CONTINUED LEFT INCISIONAL BURNING 06/19. PERCOCET 10 MG GIVEN PO FOR RELIEF. DISCUSSED USE OF LIGHT SUPPORT UNDERWEAR AT HOME TO SUPPORT LOWER ABDOMEN. DISCUSSED PAIN MEDICATION AND ADMINISTRATION FOR DC MEDS. INFORMED THAT DR HARGROVE WILL NOT BE IN BUT THAT DR PARR CALLED AND GAVE DC ORDER. VERBALIZED UNDERSTANDING.
[2019-04-18] MEDS ORDERED: IBUPROFEN800 MG PO (13:44)
[2019-04-18] MEDS ORDERED: PERCOCET 5-3251 TAB PO (13:45)
--- NOTE | 2019-04-18 13:56 | NUR ---
PAIN HAS IMPROVED PER PT NOW 3-4/10 INCISION BURNING. STUDENT RN COMPLETED PE NO CHANGES FROM EARLIER STATUS IDENTIFIED. VS OBTAINED. REQUESTED JELLO. NO ADDITIONAL REQUESTS. WILL DC HOME AFTER PROVIDING VERBAL AND WRITTEN DC INSTRUCTIONS.
[2019-04-18 14:00] VITALS: BP 129/77
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
--- NOTE | 2019-04-18 15:29 | NUR ---
AMBULATED TO NURSING DESK AND SAYS SHE IS READY TO GO HOME. SAYS HER PAIN IS GETTING BETTER AND THINKS IT WAS PROBABLY GAS. NO 03/19. DISCUSSED RELIEF MEASURES FOR GAS. VERBALIZED UNDERSTANDING. DC'D VIA WHEELCHAIR TO CAR. PT FATHER IS DRIVING. ALL BELONGINGS REMOVED FROM ROOM. HAS DC INSTRUCTIONS AND PRESCRIPTIONS. AWARE OF F/U APPOINTMENT AND WHO TO CALL IF ANY PROBLEMS.
--- NOTE | 2019-04-29 19:34 | OP ---
PATIENT NAME: KAYLI LOZA MEDICAL RECORD: [id number] :89 LOCATION:[facility]78 ADMISSION DATE:04/16/19 SURGEON: HA CORRALES MD DATE OF OPERATION: 04/16/2019 PREOPERATIVE DIAGNOSES: 1. Pelvic pain. 2. Extensive adhesive disease. POSTOPERATIVE DIAGNOSES: 1. Pelvic pain. 2. Extensive adhesive disease. 3. Uterus fused to rectus fascia and bladder adhesions. PROCEDURES: Supracervical hysterectomy and lysis of adhesions. SURGEON: Ha Corrales ANESTHESIA: General endotracheal. INTRAVENOUS FLUIDS: Per anesthesia record. SPECIMENS: Uterus with partial cervix. ESTIMATED BLOOD LOSS: 200 cc. COMPLICATIONS: None apparent. FINDINGS: 1. Uterus densely adherent to the anterior abdominal wall. 2. Dense adhesive disease involving the bladder and the cervix. PROCEDURE IN DETAIL: The patient was taken to the operating room, where general anesthesia was achieved without difficulty. The patient was then prepped and draped in normal sterile fashion in the dorsal supine position. SCDs were on and functioning normally. A Jasmine catheter had been placed following vaginal prep and was draining freely. Following prep and drape, a repeat Pfannenstiel skin incision was made and extended downward to the underlying fat to level of the fascia. The fascia was then excised in the midline and the fascial incision was extended bilaterally using the Yost scissors. The superior and inferior aspects of the fascial incision were then grasped with Michael clamps, tented upwards, and sharply dissected from the underlying rectus muscle using the Bovie cautery and the Yost scissors. The rectus muscles were bluntly in the midline. The peritoneum was entered at the most superior aspect of the incision using the Metzenbaum scissors. During dissection of the anterior peritoneum, it was found that the uterus was superiorly displaced and densely adherent to the rectus fascia. Careful dissection was performed to separate the anterior uterus from the rectus fascia. The bladder was carefully identified and the anterior uterus was freed by dissection using the Metzenbaum scissors. Following dissection of the anterior uterus, a defect was made in the anterior and posterior peritoneum and the uteroovarian ligaments were clamped with curved Jonah clamps times 2. These were then cut, free tied, and suture ligated with #0 Vicryl. Skeletonization of the uterine vessels was then performed downward to the level of the previous scar where the bladder was densely adherent to the cervix. The uterine vessels were then isolated and clamped with OPERATIVE REPORT [id number] KAYLI LOZA curved Jonah clamps. These were then cut and suture ligated. Further dissection of the bladder was performed. It felt that the adhesions were very dense and that continued dissection was likely going to result in a cystotomy. The patient had been counseled about the possibility of needing a supracervical hysterectomy. Straight Jonah clamps were then placed across the cardinal ligaments at the superior aspect of the cervix. The cervix was amputated and the uterus was removed. The endocervical canal was then gently cauterized and the cervical stump was oversewn using #0 Vicryl in interrupted [id number] fashion with good hemostasis noted. Several areas were then cauterized using the Bovie cautery and the pelvis was thoroughly irrigated. Counts were correct times 2. All surgical sites were found to be hemostatic. The fascia was then repaired with #0 loop PDS times 1. The previous scar was dissected to give more looseness to the incision. The skin was repaired with 3-0 Monocryl using a Juan David needle followed by Dermabond. The patient tolerated the procedure well. She was transferred to postanesthesia recovery stable without incident. TRANSINT:[id number] Voice Confirmation ID: [id number] DOCUMENT ID: [id number] HA CORRALES MD at 1934 CC: [id number] DICTATION DATE: 04/25/19 1541 EDUCATION TEACHER: 04/25/191954 DIS IN 04/18/19 [facility] [address] [place] [address]
--- NOTE | 2019-06-30 11:41 | DS ---
PATIENT:KAYLI LOZA :89 MEDICAL RECORD: [id number] DISCHARGE SUMMARY ADMISSION DATE: 04/16/19 DISCHARGE DATE: 04/18/19 The patient was admitted on 04/16/2019. HISTORY OF PRESENT ILLNESS: A 24-year-old with a longstanding history of pelvic pain and dysmenorrhea refractory to medical treatment. The patient was admitted for a total abdominal hysterectomy. PAST MEDICAL HISTORY: Included; 1. Chronic hypertension. 2. Migraines. 3. Gastroesophageal reflux disease. 4. Depression/anxiety. 5. Psoriasis. 6. Hypothyroidism. PAST SURGICAL HISTORY: The patient reported a surgical history significant for times 3 as well as tonsillectomy and adenoidectomy. ALLERGIES: THE PATIENT REPORTED ALLERGIES TO PENICILLIN, SULFA AND LATEX. MEDICATIONS: Included Synthroid, Ziac, lisinopril, fluconazole, amitriptyline, and Lexapro. FAMILY HISTORY: The patient reported a family history significant for a parent with cardiovascular disease, not otherwise specified and a sibling with diabetes. SOCIAL HISTORY: The patient reported being an everyday smoker. PHYSICAL EXAMINATION: VITAL SIGNS: On initial assessment, vital signs were found to be stable. The patient was normotensive and afebrile. LUNGS: Clear to auscultation. CARDIOVASCULAR: Regular rate and rhythm. ABDOMEN: Soft and appropriately tender. EXTREMITIES: Lower extremities were free of erythema, swelling, or Homans sign. ASSESSMENT AND PLAN: At admission; 1. Pelvic pain/menorrhagia. 2. Hypothyroidism. 3. Migraines. 4. Psoriasis. 5. Depression/anxiety. 6. Chronic hypertension. Plan at that time for supracervical hysterectomy and bilateral salpingectomy. Risks and benefits were explained. The patient understands repeat Pap smears if the cervix must be left behind due to scarring. The patient voiced understanding and consent. Operative report is as dictated. The patient did well overnight on postop day #0 on Dilaudid WIRE STITCHER OPERATOR, IV Toradol, IV fluids overnight, tolerating a clear liquid diet. SCDs were on and functioning normally. A Jasmine catheter was left in overnight, and the patient was doing DISCHARGE SUMMARY REPORT [id number] KAYLI LOZA well. On the morning of postop day #1, vital signs were stable. Incision was clean, dry and intact. Lower extremities were free of erythema or Homans sign. Urine output was adequate overnight. The patient was advanced to general diet and p.o. pain meds. Jasmine catheter was discontinued. Ambulation was begun. Postop hemoglobin was found to be stable. The patient continued to improve overnight and on the morning of postop day #2, incision remained clean, dry and intact. Vital signs remained stable. The patient was discharged on postop day #2 with instructions to follow up in 1 week for wound check. TRANSINT:[id number] Voice Confirmation ID: [id number] DOCUMENT ID: [id number] KATERIN HARGROVE MD at 1141 CC: [id number] DICTATION DATE: 06/27/19 1131 MEDICAL CARE EVALUATION SPECIALIST: 06/27/19 [id number] DIS IN 04/18/19 [facility] [id number] [place] [address]
== END 2019-04-18 15:29 | disposition home or self-care (01) | DRG 743 ==
LOC: D.SDCHOLD 04-16 05:35 → D.LD 04-16 10:31
PROVIDERS: ADMIT Obstetrics & Gynecology; ATTEND Obstetrics & Gynecology
PROC: 0UT90ZL Resection of Uterus, Supracervical, Open Approach (ICD-10-PCS; principal; 2019-04-16 07:30)
DX: N92.0 Excessive and frequent menstruation with regular cycle (principal); E03.9 Hypothyroidism, unspecified; E11.9 Type 2 diabetes mellitus without complications; F41.8 Other specified anxiety disorders; L40.9 Psoriasis, unspecified; R10.2 Pelvic and perineal pain